=== PATIENT | male | born 1960 | race Caucasian/White ===

== ENCOUNTER 2016-07-07 09:29 | Outpatient (CLI) ==
[2012-12-02 20:31] VITALS: TEMP 97.3
[2015-06-23 12:12] VITALS: BMI 34.4
== END 2016-07-07 09:30 | disposition home or self-care (01) ==
LOC: LAB 09:29
PROVIDERS: ATTEND Internal Medicine
DX: I26.99 Other pulmonary embolism without acute cor pulmonale (principal); Z95.1 Presence of aortocoronary bypass graft
CPT/HCPCS: 36415; 85610

== ENCOUNTER 2016-08-15 15:20 | Outpatient (CLI) ==
[2012-12-02 20:31] VITALS: TEMP 97.3
[2015-06-23 12:12] VITALS: BMI 34.4
[2016-08-15 15:42] LABS: PROTHROMBIN TIME 28.2 SEC (9.3-11.0)
== END 2016-08-15 15:21 | disposition home or self-care (01) ==
LOC: LAB 15:20
PROVIDERS: ATTEND Internal Medicine
DX: I26.99 Other pulmonary embolism without acute cor pulmonale (principal); Z95.1 Presence of aortocoronary bypass graft
CPT/HCPCS: 36415; 85610

== ENCOUNTER 2016-09-14 10:59 | Outpatient (RCR) ==
[2015-06-23 12:12] VITALS: BMI 34.4
[2016-09-16 08:52] VITALS: BP 106/52
== END 2016-09-16 ==
LOC: CAR.REHAB 10:59
PROVIDERS: ATTEND Nurse Practitioner Family
DX: I50.23 Acute on chronic systolic (congestive) heart failure (principal)
CPT/HCPCS: 93798

== ENCOUNTER 2016-09-17 07:00 | Outpatient (RCR) ==
[2015-06-23 12:12] VITALS: BMI 34.4
[2016-10-07 08:59] VITALS: BP 92/50
== END 2016-10-16 ==
LOC: CAR.REHAB 07:00
PROVIDERS: ATTEND Internal Medicine
DX: I50.23 Acute on chronic systolic (congestive) heart failure (principal)
CPT/HCPCS: 93798

== ENCOUNTER 2016-09-26 11:33 | Outpatient (CLI) ==
[2012-12-02 20:31] VITALS: TEMP 97.3
[2015-06-23 12:12] VITALS: BMI 34.4
[2016-09-26 12:09] LABS: ANION GAP 13.3; BUN/CREATININE RATIO 15.59; CREATININE 1.09 mg/dL (0.60-1.10); POTASSIUM 4.3 mmol/L (3.5-5.1)
== END 2016-09-26 11:34 | disposition home or self-care (01) ==
LOC: LAB 11:33
PROVIDERS: ATTEND Internal Medicine
DX: I10 Essential (primary) hypertension (principal)
CPT/HCPCS: 36415; 80048

== ENCOUNTER 2016-09-30 11:44 | Outpatient (CLI) ==
[2012-12-02 20:31] VITALS: TEMP 97.3
[2015-06-23 12:12] VITALS: BMI 34.4
[2016-09-30 12:41] LABS: ANION GAP 15.2; BUN/CREATININE RATIO 12.93; CALCIUM 9.6 mg/dL (8.2-10.2); CREATININE 1.16 mg/dL (0.60-1.10); POTASSIUM 3.2 mmol/L (3.5-5.1)
== END 2016-09-30 11:45 | disposition home or self-care (01) ==
LOC: LAB 11:44
PROVIDERS: ATTEND Internal Medicine
DX: I10 Essential (primary) hypertension (principal)
CPT/HCPCS: 36415; 80048

== ENCOUNTER 2016-10-04 13:12 | Emergency (ER) ==
[2016-10-04 13:19] VITALS: BP 81/66; TEMP 97.2; BMI 28.8
[2016-10-04] MEDS ORDERED: SODIUM CHLORIDE 250 ML IV STA (13:28)
[2016-10-04] MEDS ORDERED: ZOFRAN 4 MG/2 ML IVP STA ×2 (13:28→14:29)
[2016-10-04] MEDS ORDERED: ZOFRAN 4 MG/2 ML ONE (13:29)
--- NOTE | 2016-10-04 13:48 | ED.PDOC ---
General ED Provider: Dr. YAA DOYLE JR Chief Complaint: Dizziness Stated Complaint: infrom PMD nausea vomiting unable to obtain blood pressure, seen yesterday for nausea and vomiting took zofran this morning feels has been nauseated since beginning spironolactone. went to dr prasad for a check up today, was put on spironolactone last week at [facility] in [place] and has had problems since then. today was unable to get bp in the office. states ears are ringing and everything went bright. vomited this am. was seen at [facility] yesterday for vomiting. [ End ]97.2 80 22 100% 81/66 Time Seen by Physician: 13:48 Mode of Arrival: Wheelchair Information Source: Patient Exam Limitations: No limitations Primary Care Provider: JAN MACE Nursing and Triage Documentation Reviewed and Agree: No Review of Systems - Review Of Systems Constitutional: Reports: Malaise, Weakness Eyes: Reports: No symptoms Ears, Nose, Mouth, Throat: Reports: No symptoms Respiratory: Reports: No symptoms Cardiac: Reports: No symptoms, Other (low blood presure) GI: Reports: Abdominal pain, Nausea, Vomiting : Reports: No symptoms Musculoskeletal: Reports: No symptoms Skin: Reports: No symptoms Neurological: Reports: No symptoms, Headache Endocrine: Reports: No symptoms Hematologic/Lymphatic: Reports: No symptoms All Other Systems: Other Past Medical History - Past Medical History Previously Healthy: No Endocrine: Reports: DM 2, Dyslipidemia Cardiovascular: Reports: [place], Hypertension Respiratory: Reports: COPD Hematological: Reports: None Gastrointestinal: Reports: None Genitourinary: Reports: None Neuro/Psych: Reports: Anxiety Musculoskeletal: Reports: None Cancer: Reports: None - Surgical History General Surgical History: Reports: Pacemaker (defib) - Family History Family History: Reports: Unknown - Social History Smoking Status: Former smoker Hx Substance Use: No Alcohol Screening: Occasionally Physical Exam - Physical Exam Appearance: Ill-appearing Ill-appearing: Moderate Pain Distress: Moderate Eyes: GARRET, EOMI, Conjunctiva clear ENT: Ears normal, Nose normal, Oropharynx normal Neck: Supple Respiratory: Airway patent, Breath sounds clear, Breath sounds equal, Respirations nonlabored Cardiovascular: RRR, Pulses normal, No rub, No murmur GI/: Soft, No masses, Tender, Bowel sounds hypoactive Musculoskeletal: Normal strength, ROM intact, No calf tenderness, Edema Physician Notification - Case Discussed Physician Notified: Dr Alvarado at [facility] accepts transfer Time of Notification: 16:30 Critical Care Note - Critical Care Note Total Time (mins): 20 Course - Course Hematology/Chemistry: 10/04/16 13:47 10/04/16 13:47 Orders, Labs, Meds: Lab Review 10/04/16 10/04/16 13:29 13:47 WBC 12.74 H RBC 5.66 Hgb 16.3 Hct 46.8 MCV 82.7 MCH 28.8 MCHC 34.8 RDW Coeff of Dione 13.7 Plt Count 220 Immature Gran % (Auto) 0.3 Neut % (Auto) 78.5 Lymph % (Auto) 9.7 L [place] % (Auto) 9.7 Eos % (Auto) 1.2 Baso % (Auto) 0.6 Immature Gran # (Auto) 0.0 Neut # 10.0 H Lymph # 1.2 [place] # 1.2 Eos # 0.2 Baso # 0.1 PT 32.7 H INR 12.88 H* Puncture Site Lr O2 Saturation 99.0 ABG pH 7.551 H* ABG pCO2 24.8 L ABG pO2 102.0 H ABG HCO3 21.8 L ABG Total CO2 23 ABG Base Excess -1 Junior Test + FiO2 % 21.0 Sodium 133 L Potassium 3.6 Chloride 90 L Carbon Dioxide 26 Anion Gap 20.6 BUN 30 H Creatinine 1.98 H Estimated GFR (MDRD) 35.00 BUN/Creatinine Ratio 15.15 Glucose 161 H Lactic Acid 29.3 H Calcium 9.7 Total Bilirubin 1.94 H AST 29 ALT 38 Alkaline Phosphatase 57 Total Creatine Kinase 105 Troponin I 0.1090 B-Natriuretic Peptide 1304 H Total Protein 7.9 Albumin 4.3 Globulin 3.6 Albumin/Globulin Ratio 1.19 Procalcitonin < 0.05 Orders Category Date Time Status ABG DRAW REQUEST Stat CARDIO 10/04/16 13:29 Completed EKG-(ED ONLY) Stat CARDIO 10/04/16 13:28 Completed ED APPLY O2 .ONCE EMERGENCY 10/04/16 13:28 Active ED WEIGHTER APPLIED .ONCE EMERGENCY 10/04/16 13:28 Active ED IV/MEDIPORT/POWERPORT .ONCE EMERGENCY 10/04/16 13:28 Active ABG Stat LAB 10/04/16 13:29 Completed ACTH Stat LAB 10/04/16 13:47 Received B-TYPE NATRIURETIC PEPTIDE Stat LAB 10/04/16 13:47 Completed BLOOD CULTURE Stat LAB 10/04/16 13:47 Received CBC W/ AUTO DIFF Stat LAB 10/04/16 13:47 Completed COMPREHENSIVE METABOLIC PANEL Stat LAB 10/04/16 13:47 Completed CORTISOL,RANDOM Stat LAB 10/04/16 13:47 Received CREATINE KINASE Stat LAB 10/04/16 13:47 Completed LACTIC ACID Stat LAB 10/04/16 13:47 Completed PROCALCITONIN Stat LAB 10/04/16 13:47 Completed PT WITH INR Stat LAB 10/04/16 13:47 Completed TROPONIN I Stat LAB 10/04/16 13:47 Completed 0.9 % Sodium Chloride [Saline Flush] MEDS 10/04/16 13:28 Discontinued 1 syr IVF PRN PRN Dexamethasone 4 mg/ml Inj [Decadron 4 mg/ml Sdv] MEDS 10/04/16 14:08 Discontinued 4 mg IVP ONCE STA Metoclopramide HCl [Reglan] MEDS 10/04/16 14:43 Discontinued 10 mg .ROUTE .STK-MED ONE Metoclopramide HCl [Reglan] MEDS 10/04/16 14:47 Discontinued 10 mg IVP ONCE STA Ondansetron HCl/Pf [Zofran 4 mg/2 ml] MEDS 10/04/16 13:29 Discontinued 4 mg .ROUTE .STK-MED ONE Ondansetron HCl/Pf [Zofran 4 mg/2 ml] MEDS 10/04/16 13:28 Discontinued 4 mg IVP ONCE STA Ondansetron HCl/Pf [Zofran 4 mg/2 ml] MEDS 10/04/16 14:29 Discontinued 4 mg IVP ONCE STA Phytonadione [Mephyton] MEDS 10/04/16 16:01 Discontinued 5 mg PO ONCE STA Sodium Chloride 0.9% [Sodium Chloride] 1,000 ml MEDS 10/04/16 14:34 Discontinued IV 100 mls/hr Sodium Chloride 0.9% [Sodium Chloride] 250 ml MEDS 10/04/16 13:28 Discontinued IV BOLUS CHEST, 1V AP ONLY Stat RADS 10/04/16 13:28 Completed Medications Discontinued Medications Generic Name Dose Route Start Last Admin Trade Name Freq PRN Reason Stop Dose Admin Dexamethasone Sodium Phosphate 4 mg 04/18/17 14:08 10/04/16 14:17 Decadron 4 Mg/Ml Sdv IVP 10/04/16 14:09 4 mg ONCE STA Administration Sodium Chloride 250 mls @ 1,000 mls/hr 10/04/16 13:28 10/04/16 13:36 Sodium Chloride IV 10/04/16 13:42 1,000 mls/hr BOLUS STA Administration Sodium Chloride 1,000 mls @ 100 mls/hr 10/04/16 14:34 10/04/16 14:47 Sodium Chloride IV 10/05/16 00:33 100 mls/hr .Q10H STA Administration Metoclopramide HCl 10 mg 10/04/16 14:47 10/04/16 14:56 Reglan IVP 10/04/16 14:48 Not Given ONCE STA Ondansetron HCl 4 mg 10/04/16 13:28 10/04/16 13:36 Zofran 4 Mg/2 Ml IVP 10/04/16 13:29 4 mg ONCE STA Administration Ondansetron HCl 4 mg 10/04/16 14:29 10/04/16 14:35 Zofran 4 Mg/2 Ml IVP 10/04/16 14:30 4 mg ONCE STA Administration Phytonadione 5 mg 10/04/16 16:01 10/04/16 16:06 Mephyton PO 10/04/16 16:02 5 mg ONCE STA Administration Sodium Chloride 1 syr 10/04/16 13:28 10/04/16 13:36 Saline Flush IVF 1 syr PRN PRN Administration To flush IV Vital Signs: Temp Pulse Resp BP Pulse Ox 10/04/16 13:13 97.2 F L 80 22 81/66 L 100 ROBSON Risk Score ROBSON Risk Score: Risk Score Odds of by 30D 0 0.1 (0.1-0.2) 1 0.3 (0.2-0.3) 2 0.4 (0.3-0.5) 3 0.7 (0.6-0.9) 4 1.2 (1.0-1.5) 5 2.2 (1.9-2.6) 6 3.0 (2.5-3.6) 7 4.8 (3.8-6.1) Departure - Departure Time of Disposition: 16:30 Disposition: TSF SHORT-TRM HOSP Discharge Problem: CHF (congestive heart failure), Renal failure Condition: Stable Pt referred to PMD for follow-up: No (transfer [facility]) Allergies/Adverse Reactions: Allergies No Known Allergies Allergy (Verified 10/04/16 13:22) Home Medications: Ambulatory Orders Rosuvastatin Calcium [Crestor] 10 mg PO BEDTIME 12/01/12 Aspirin [Aspirin Chewable] 81 mg PO DAILY 01/01/13 Lisinopril [Zestril] 2.5 mg PO DAILY 01/01/13 Warfarin Sodium [Coumadin] 5 mg PO QPM 01/01/13 Alprazolam 1 - 2 tab PO DAILY PRN 09/24/13 Budesonide/Formoterol Fumarate [Symbicort 160-4.5 Mcg Inhaler] 1 puff IH BID 01/30 Carvedilol [Coreg] 6.25 mg PO BIDWM #60 tablet 09/28/13 Albuterol Sulfate 0.083% Neb [Albuterol 0.083% Neb] 1 vial NEB RTQ6H PRN Metformin HCl [Glucophage] 500 mg PO DAILYWM 02/20/14 Furosemide [Lasix Tab] 80 mg PO QDAC 10/04/16
[2016-10-04 13:59] LABS: BASOPHILS # (AUTO) 0.1 K/uL (0-0.2); BASOPHILS % (AUTO) 0.6 % (0.0-3.0); EOSINOPHILS # (AUTO) 0.2 K/ul (0.0-0.7); EOSINOPHILS % (AUTO) 1.2 % (0.0-7.0); HEMATOCRIT 46.8 % (42.0-52.0); HEMOGLOBIN 16.3 g/dl (14.0-18.0); IMMATURE GRANULOCYTE % (AUTO) 0.3 % (0.0-5.0); LYMPHOCYTES # (AUTO) 1.2 K/uL (0.60-3.4); LYMPHOCYTES % (AUTO) 9.7 (10.0-50.0); MEAN CORPUSCULAR HEMOGLOBIN 28.8 pg (27.0-31.0); MEAN CORPUSCULAR HGB CONC 34.8 (31.8-35.4); MEAN CORPUSCULAR VOLUME 82.7 fl (80.0-94.0); MONOCYTES # (AUTO) 1.2 K/uL (0.4-2.0); MONOCYTES % (AUTO) 9.7 (0-10); NEUTROPHILS % (AUTO) 78.5; PLATELET COUNT 220 10^3/uL (140-440); RED BLOOD COUNT 5.66 10^6/ul (4.70-6.10); WHITE BLOOD COUNT 12.74 K/ul (4.2-10.2)
--- NOTE | 2016-10-04 14:05 | DI ---
EXAM: Single view of the chest. History: Chest pain. Comparison: Chest radiograph 03/19/2014 Findings: Heart is enlarged. Pacer device. Sternotomy wires. No focal consolidation. No appreci able pleural fluid and no pneumothorax. No acute osseous abnormalities. Artificial heart valve Impression: Cardiomegaly with no evidence for pulmonary edema.
[2016-10-04] MEDS ORDERED: DECADRON 4 MG/ML SDV IVP STA (14:08)
[2016-10-04 14:09] LABS: ABG BASE EXCESS -1 (-2.0-2.0); ABG HCO3 21.8 (22.0-26.0); ABG PCO2 24.8 mmHg (35-45); ABG PH 7.551 (7.35-7.45)
[2016-10-04 14:10] LABS: ABG TCO2 23 (22.0-28.0)
[2016-10-04 14:26] LABS: ALBUMIN 4.3 g/dL (3.4-5.0); ALBUMIN/GLOBULIN RATIO 1.19; ANION GAP 20.6; BILIRUBIN,TOTAL 1.94 mg/dL (0.00-1.20); BUN/CREATININE RATIO 15.15; CALCIUM 9.7 mg/dL (8.2-10.2); CREATININE 1.98 mg/dL (0.60-1.10); POTASSIUM 3.6 mmol/L (3.5-5.1); TOTAL PROTEIN 7.9 g/dL (6.4-8.2); TROPONIN I 0.109 ng/ml (0.0000-0.4000)
[2016-10-04] MEDS ORDERED: SODIUM CHLORIDE 1,000 ML IV STA (14:34)
[2016-10-04] MEDS ORDERED: REGLAN ONE (14:43)
[2016-10-04] MEDS ORDERED: REGLAN IVP STA (14:47)
[2016-10-04 15:04] LABS: PROTHROMBIN TIME 32.7 SEC (9.3-11.0)
[2016-10-04] MEDS ORDERED: VITAMIN K IV STA (15:49)
[2016-10-04] MEDS ORDERED: SODIUM CHLORIDE IV STA (15:49)
[2016-10-04] MEDS ORDERED: MEPHYTON PO STA (16:01)
== END 2016-10-04 17:09 | disposition short-term general hospital (02) ==
LOC: ED 13:12
DX: I50.9 Heart failure, unspecified (principal); N19 Unspecified kidney failure; E11.9 Type 2 diabetes mellitus without complications; E78.5 Hyperlipidemia, unspecified; I25.2 Old myocardial infarction; I10 Essential (primary) hypertension; J44.9 Chronic obstructive pulmonary disease, unspecified; Z95.0 Presence of cardiac pacemaker; Z79.01 Long term (current) use of anticoagulants; Z79.899 Other long term (current) drug therapy
CPT/HCPCS: 36415; 80053; 82024; 82533; 82550; 82803; 83605; 83880; 84145; 84484; 85025; 85610; 87040; 93005; 93010; 96361; 96374; 96375; 96376; 99285

== ENCOUNTER 2016-10-04 17:15 | Outpatient (CLI) ==
[2012-12-02 20:31] VITALS: TEMP 97.3
== END 2016-10-04 17:16 ==
LOC: AMBL 17:15
PROVIDERS: ATTEND Emergency Medicine
DX: I42.9 Cardiomyopathy, unspecified (principal); R42 Dizziness and giddiness; I95.9 Hypotension, unspecified

== ENCOUNTER 2016-10-07 08:46 | Emergency (ER) ==
[2016-10-07 08:46] VITALS: BMI 28.8
[2016-10-07 08:54] VITALS: BP 92/60; TEMP 98.2
[2016-10-07 09:48] LABS: BASOPHILS # (AUTO) 0.1 K/uL (0-0.2); EOSINOPHILS # (AUTO) 0.3 K/ul (0.0-0.7); EOSINOPHILS % (AUTO) 3.1 % (0.0-7.0); HEMATOCRIT 45.5 % (42.0-52.0); HEMOGLOBIN 15.5 g/dl (14.0-18.0); IMMATURE GRANULOCYTE % (AUTO) 0.5 % (0.0-5.0); LYMPHOCYTES # (AUTO) 1.1 K/uL (0.60-3.4); LYMPHOCYTES % (AUTO) 12.4 (10.0-50.0); MEAN CORPUSCULAR HEMOGLOBIN 28.8 pg (27.0-31.0); MEAN CORPUSCULAR HGB CONC 34.1 (31.8-35.4); MEAN CORPUSCULAR VOLUME 84.4 fl (80.0-94.0); MONOCYTES # (AUTO) 0.9 K/uL (0.4-2.0); MONOCYTES % (AUTO) 10.1 (0-10); NEUTROPHILS # (AUTO) 6.4 K/ul (2.0-6.9); NEUTROPHILS % (AUTO) 72.9; PLATELET COUNT 166 10^3/uL (140-440); RED BLOOD COUNT 5.39 10^6/ul (4.70-6.10); WHITE BLOOD COUNT 8.73 K/ul (4.2-10.2)
--- NOTE | 2016-10-07 10:09 | DI ---
EXAM: Single view of the chest. History: Cough. Comparison: Chest radiograph 10/04/2016 Findings: Heart remains enlarged. Pacer device. Sternotomy wires. No definite infiltrates. No a ppreciable pleural fluid and no pneumothorax. No acute osseous abnormalities. Impression: Cardiomegaly without evidence for pulmonary edema. No change compared to the prior adryan dy.
[2016-10-07 10:11] LABS: PARTIAL THROMBOPLASTIN TIME 25.2 SEC (23.9-40.0); PROTHROMBIN TIME 12.9 SEC (9.3-11.0)
[2016-10-07 10:17] LABS: ALBUMIN 3.9 g/dL (3.4-5.0); ALBUMIN/GLOBULIN RATIO 1.22; ANION GAP 16.2; BILIRUBIN,TOTAL 2.06 mg/dL (0.00-1.20); BUN/CREATININE RATIO 16.66; CALCIUM 9.2 mg/dL (8.2-10.2); CREATININE 1.14 mg/dL (0.60-1.10); POTASSIUM 3.2 mmol/L (3.5-5.1); TOTAL PROTEIN 7.1 g/dL (6.4-8.2); TROPONIN I 0.044 ng/ml (0.0000-0.4000)
--- NOTE | 2016-10-07 11:43 | ED.PDOC ---
General ED Provider: Dr. MARIE CURIEL Chief Complaint: Weakness Stated Complaint: weakness Time Seen by Physician: 09:00 (was D/C from [facility] 1 day ago , while at cardiac rehab became weak) Mode of Arrival: Walk-In Information Source: Patient Exam Limitations: No limitations Primary Care Provider: JAN MACE Nursing and Triage Documentation Reviewed and Agree: Yes Neurological Complaint Exam - Weakness Complaint/Exam Last Known Well: this morning became weak at rehab arrived in no pain Onset: Sudden Duration: 20 min . was at [facility] due to elevated INR d/c 1 day ago Symptoms Are: Still present Episodes Lasting: Minutes Initial Severity: Mild Current Severity: None Character: Reports: Lightheaded, Weak Aggravating: Reports: Exertion Alleviating: Reports: Rest Associated Signs and Symptoms: Denies: Nausea, Vomiting, Diaphoresis, Tinnitus, Chest pain, Short of air, Palpitations, Unsteady gait, GI blood loss, Visual changes, Decreased oral intake, Change in medication, Change in diet, OTC meds, Loss of balance Related History: Similar episode Cardiac Risk Factors: Reports: Hypertension (severe cardio myopathy being unloaded per PMD ), Elevated lipids, CAD CVA Risk Factors: Reports: Hypertension, CAD Related Surgical History: Reports: CABG, Pacemaker JVD Present: No Carotid Bruit Present: No Nystagmus Present: No Gag Reflex Present: Yes Meningeal Signs Positive: No Focal Weakness: Present: None Focal Sensory Loss: Present: None Gait: Normal [id number]: Normal Findings Babinski Sign: Negative Right, Negative Left Heel to Toe Normal: No Caroline-Hallpike Test Positive: No Differential Diagnoses: CAD, Dysrhythmia, Hypovolemia, Metabolic abnormalities Quality Indicators for Cardiac Chest Pain: EKG in 10min. Quality Indicators for AMI: EKG in 10min. Quality Indicator For Non-Traumatic Chest Pain/Syncope: EKG Performed Review of Systems - Review Of Systems Constitutional: Reports: Malaise, Weakness Eyes: Reports: No symptoms Ears, Nose, Mouth, Throat: Reports: No symptoms Respiratory: Reports: No symptoms Cardiac: Reports: No symptoms GI: Reports: No symptoms : Reports: No symptoms Musculoskeletal: Reports: No symptoms Skin: Reports: No symptoms Neurological: Reports: No symptoms Endocrine: Reports: No symptoms Hematologic/Lymphatic: Reports: No symptoms All Other Systems: Reviewed and Negative Past Medical History - Past Medical History Previously Healthy: No Endocrine: Reports: DM 2, Dyslipidemia Cardiovascular: Reports: [place], Hypertension Respiratory: Reports: COPD Hematological: Reports: None Gastrointestinal: Reports: None Genitourinary: Reports: None Neuro/Psych: Reports: Anxiety Musculoskeletal: Reports: None Cancer: Reports: None - Surgical History General Surgical History: Reports: Pacemaker (defib) - Family History Family History: Reports: Unknown - Social History Smoking Status: Former smoker Hx Substance Use: No Alcohol Screening: Occasionally Physical Exam - Physical Exam Appearance: Well-appearing, No pain distress, Well-nourished Eyes: GARRET, EOMI, Conjunctiva clear ENT: Ears normal, Nose normal, Oropharynx normal Respiratory: Airway patent, Breath sounds clear, Breath sounds equal, Respirations nonlabored Cardiovascular: RRR, Pulses normal, No rub, No murmur GI/: Soft, Nontender, No masses, Bowel sounds normal, No Organomegaly Musculoskeletal: Normal strength, ROM intact, No edema, No calf tenderness Skin: Warm, Dry, Normal color Neurological: Sensation intact, Motor intact, Reflexes intact, Cranial nerves intact, Alert, Oriented Psychiatric: Affect appropriate, Mood appropriate Re-Evaluation - Re-Evaluation Time of Re-Evaluation: 10:00 Status: Improved Vital Signs Stable: Yes Pain Level: 0 Appearance: NAD Lungs: Clear Skin: Warm and Dry Neuro: Alert and Oriented X3 CV: RRR - Re-Evaluation Time of Re-Evaluation: 11:45 (SPOKE TO PMD WHO STATED PT'S BP OF SYSTOLIC 80' S IS ACCEPTABLE FOR PT PMD CONTRIBUTE S LATCTIC ACID LEVELS TO LOW PERFUSION STATE DUE TO HIS TREATMENT ) Critical Care Note - Critical Care Note Total Time (mins): 0 Course - Course Hematology/Chemistry: 10/07/16 09:40 10/07/16 09:40 Orders, Labs, Meds: Lab Review 10/07/16 09:40 WBC 8.73 RBC 5.39 Hgb 15.5 Hct 45.5 MCV 84.4 MCH 28.8 MCHC 34.1 RDW Coeff of Dione 13.5 Plt Count 166 Immature Gran % (Auto) 0.5 Neut % (Auto) 72.9 Lymph % (Auto) 12.4 [place] % (Auto) 10.1 H Eos % (Auto) 3.1 Baso % (Auto) 1.0 Immature Gran # (Auto) 0.0 Neut # 6.4 Lymph # 1.1 [place] # 0.9 Eos # 0.3 Baso # 0.1 PT 12.9 H D INR 1.25 D APTT 25.2 Sodium 132 L Potassium 3.2 L Chloride 94 L Carbon Dioxide 25 Anion Gap 16.2 BUN 19 H Creatinine 1.14 H D Estimated GFR (MDRD) 66.00 BUN/Creatinine Ratio 16.66 Glucose 153 H Lactic Acid 25.4 H D Calcium 9.2 Total Bilirubin 2.06 H AST 21 ALT 29 Alkaline Phosphatase 55 Total Creatine Kinase 81 Troponin I 0.0440 B-Natriuretic Peptide 988 H Total Protein 7.1 Albumin 3.9 Globulin 3.2 Albumin/Globulin Ratio 1.22 Orders Category Date Time Status EKG-(ED ONLY) Stat CARDIO 10/07/16 09:31 Completed ED IV/MEDIPORT/POWERPORT .ONCE EMERGENCY 10/07/16 09:22 Active B-TYPE NATRIURETIC PEPTIDE Stat LAB 10/07/16 09:40 Completed BLOOD CULTURE Stat LAB 10/07/16 09:40 Received CBC W/ AUTO DIFF Stat LAB 10/07/16 09:40 Completed COMPREHENSIVE METABOLIC PANEL Stat LAB 10/07/16 09:40 Completed CREATINE KINASE Stat LAB 10/07/16 09:40 Completed LACTIC ACID Stat LAB 10/07/16 09:40 Completed PARTIAL THROMBOPLASTIN TIME Stat LAB 10/07/16 09:40 Completed PT WITH INR Stat LAB 10/07/16 09:40 Completed TROPONIN I Stat LAB 10/07/16 09:40 Completed URINALYSIS C & S IF INDICATED Stat LAB 10/07/16 09:21 Uncollected 0.9 % Sodium Chloride [Saline Flush] MEDS 10/07/16 09:22 Active 1 syr IVF PRN PRN CHEST, 1V AP ONLY Stat RADS 10/07/16 09:21 Completed Medications Generic Name Dose Route Start Last Admin Trade Name Freq PRN Reason Stop Dose Admin Sodium Chloride 1 syr 10/07/16 09:22 Saline Flush IVF PRN PRN To flush IV Vital Signs: Temp Pulse Resp BP Pulse Ox 10/07/16 08:47 98.2 F 79 16 92/60 99 Departure - Departure Time of Disposition: 12:00 (B/P AT 11;48 AM 97/55 . PMD VISIING PT) Disposition: HOME SELF-CARE Discharge Problem: Weakness Instructions: Weakness (ED) Condition: Good Pt referred to PMD for follow-up: Yes Allergies/Adverse Reactions: Allergies spironolactone Adverse Reaction (Verified 10/07/16 08:55) Home Medications: Ambulatory Orders Rosuvastatin Calcium [Crestor] 10 mg PO BEDTIME 12/01/12 Aspirin [Aspirin Chewable] 81 mg PO DAILY 01/01/13 Lisinopril [Zestril] 2.5 mg PO DAILY 01/01/13 Warfarin Sodium [Coumadin] 6.5 mg PO QPM 01/01/13 Alprazolam 1 - 2 tab PO BID PRN 09/24/13 Budesonide/Formoterol Fumarate [Symbicort 160-4.5 Mcg Inhaler] 1 puff IH BID 01/30 Carvedilol [Coreg] 6.25 mg PO BIDWM #60 tablet 09/28/13 Albuterol Sulfate 0.083% Neb [Albuterol 0.083% Neb] 1 vial NEB RTQ6H PRN Metformin HCl [Glucophage] 500 mg PO BID 02/20/14 Ondansetron [Zofran Odt] 8 mg PO Q8H PRN 10/07/16 Sitagliptin Phosphate [Januvia] 25 mg PO DAILY 10/07/16
== END 2016-10-07 13:08 | disposition home or self-care (01) ==
LOC: ED 08:46
DX: R53.1 Weakness (principal); R42 Dizziness and giddiness; I10 Essential (primary) hypertension; E78.5 Hyperlipidemia, unspecified; I25.810 Atherosclerosis of coronary artery bypass graft(s) without angina pectoris; I25.2 Old myocardial infarction; E11.9 Type 2 diabetes mellitus without complications; Z79.01 Long term (current) use of anticoagulants; Z79.899 Other long term (current) drug therapy; Z95.0 Presence of cardiac pacemaker
CPT/HCPCS: 36415; 80053; 82550; 83605; 83880; 84484; 85025; 85610; 85730; 87040; 93005; 93010; 99283

== ENCOUNTER 2016-10-10 08:19 | Outpatient (CLI) ==
[2012-12-02 20:31] VITALS: TEMP 97.3
[2016-10-10 08:44] LABS: PROTHROMBIN TIME 12.9 SEC (9.3-11.0)
== END 2016-10-10 08:20 | disposition home or self-care (01) ==
LOC: LAB 08:19
PROVIDERS: ATTEND Internal Medicine
DX: Z95.1 Presence of aortocoronary bypass graft (principal); Z79.899 Other long term (current) drug therapy
CPT/HCPCS: 36415; 85610

== ENCOUNTER 2016-10-17 07:40 | Outpatient (RCR) ==
[2016-10-07 08:54] VITALS: BMI 28.8
[2016-10-18 08:49] VITALS: BP 102/50
== END 2016-11-16 ==
LOC: CAR.REHAB 07:40
PROVIDERS: ATTEND Internal Medicine
DX: I50.23 Acute on chronic systolic (congestive) heart failure (principal)
CPT/HCPCS: 93798

== ENCOUNTER 2016-11-03 11:44 | Outpatient (CLI) ==
[2012-12-02 20:31] VITALS: TEMP 97.3
[2016-10-07 08:54] VITALS: BMI 28.8
[2016-11-03 12:40] LABS: PROTHROMBIN TIME 38.5 SEC (9.3-11.0)
== END 2016-11-03 11:45 | disposition home or self-care (01) ==
LOC: LAB 11:44
PROVIDERS: ATTEND Internal Medicine
DX: Z51.81 Encounter for therapeutic drug level monitoring (principal); Z79.899 Other long term (current) drug therapy; Z95.1 Presence of aortocoronary bypass graft
CPT/HCPCS: 36415; 85610

== ENCOUNTER 2016-11-17 10:09 | Outpatient (RCR) ==
[2016-10-07 08:54] VITALS: BMI 28.8
[2016-12-16 08:57] VITALS: BP 110/58
== END 2016-12-16 ==
LOC: CAR.REHAB 10:09
PROVIDERS: ATTEND Internal Medicine
DX: I50.23 Acute on chronic systolic (congestive) heart failure (principal)
CPT/HCPCS: 93797

== ENCOUNTER 2016-12-19 06:47 | Outpatient (RCR) ==
[2016-10-07 08:54] VITALS: BMI 28.8
[2017-01-13 11:51] VITALS: BP 112/56
== END 2017-01-16 ==
LOC: CAR.REHAB 06:47
PROVIDERS: ATTEND Internal Medicine
DX: I50.23 Acute on chronic systolic (congestive) heart failure (principal)
CPT/HCPCS: 93798

== ENCOUNTER 2016-12-23 10:16 | Outpatient (CLI) ==
[2012-12-02 20:31] VITALS: TEMP 97.3
[2016-10-07 08:54] VITALS: BMI 28.8
[2016-12-23 10:57] LABS: PROTHROMBIN TIME 17.9 SEC (9.3-11.0)
== END 2016-12-23 10:17 | disposition home or self-care (01) ==
LOC: LAB 10:16
PROVIDERS: ATTEND Internal Medicine
DX: Z51.81 Encounter for therapeutic drug level monitoring (principal); Z79.899 Other long term (current) drug therapy; Z95.1 Presence of aortocoronary bypass graft
CPT/HCPCS: 36415; 85610

== ENCOUNTER 2017-01-17 07:42 | Outpatient (RCR) ==
[2016-10-07 08:54] VITALS: BMI 28.8
[2017-02-15 09:54] VITALS: BP 108/62
== END 2017-02-16 ==
LOC: CAR.REHAB 07:42
PROVIDERS: ATTEND Internal Medicine
DX: I50.23 Acute on chronic systolic (congestive) heart failure (principal)
CPT/HCPCS: 93798

== ENCOUNTER 2017-02-13 10:00 | Outpatient (CLI) ==
[2012-12-02 20:31] VITALS: TEMP 97.3
[2016-10-07 08:54] VITALS: BMI 28.8
== END 2017-02-13 10:01 | disposition home or self-care (01) ==
LOC: LAB 10:00
PROVIDERS: ATTEND Internal Medicine
DX: Z51.81 Encounter for therapeutic drug level monitoring (principal); Z79.899 Other long term (current) drug therapy; Z95.1 Presence of aortocoronary bypass graft
CPT/HCPCS: 36415; 85610

== ENCOUNTER 2017-02-17 07:11 | Outpatient (RCR) ==
[2016-10-07 08:54] VITALS: BMI 28.8
[2017-03-17 09:59] VITALS: BP 116/58
== END 2017-03-18 ==
LOC: CAR.REHAB 07:11
PROVIDERS: ATTEND Internal Medicine
DX: I50.23 Acute on chronic systolic (congestive) heart failure (principal)
CPT/HCPCS: 93798

== ENCOUNTER 2017-04-11 09:27 | Outpatient (CLI) ==
[2012-12-02 20:31] VITALS: TEMP 97.3
[2016-10-07 08:54] VITALS: BMI 28.8
[2017-04-11 10:10] LABS: PROTHROMBIN TIME 21.7 SEC (9.3-11.0)
[2017-04-11 11:06] LABS: BASOPHILS # (AUTO) 0.1 K/uL (0-0.2); BASOPHILS % (AUTO) 0.7 % (0.0-3.0); EOSINOPHILS # (AUTO) 0.3 K/ul (0.0-0.7); EOSINOPHILS % (AUTO) 2.6 % (0.0-7.0); HEMATOCRIT 36.9 % (42.0-52.0); HEMOGLOBIN 12.8 g/dl (14.0-18.0); IMMATURE GRANULOCYTE % (AUTO) 0.4 % (0.0-5.0); LYMPHOCYTES # (AUTO) 1.5 K/uL (0.60-3.4); LYMPHOCYTES % (AUTO) 13.7 (10.0-50.0); MEAN CORPUSCULAR HEMOGLOBIN 30.5 pg (27.0-31.0); MEAN CORPUSCULAR HGB CONC 34.7 (31.8-35.4); MEAN CORPUSCULAR VOLUME 87.9 fl (80.0-94.0); MONOCYTES # (AUTO) 1.1 K/uL (0.4-2.0); MONOCYTES % (AUTO) 10.6 (0-10); NEUTROPHILS # (AUTO) 7.7 K/ul (2.0-6.9); PLATELET COUNT 186 10^3/uL (140-440); WHITE BLOOD COUNT 10.72 K/ul (4.2-10.2)
[2017-04-11 11:50] LABS: ALBUMIN/GLOBULIN RATIO 0.98; BILIRUBIN,TOTAL 0.67 mg/dL (0.00-1.20); BUN/CREATININE RATIO 22.3; CALCIUM 10.1 mg/dL (8.2-10.2); CREATININE 1.3 mg/dL (0.60-1.10); TOTAL PROTEIN 8.1 g/dL (6.4-8.2)
== END 2017-04-11 09:28 | disposition home or self-care (01) ==
LOC: LAB 09:27
PROVIDERS: ATTEND Internal Medicine
DX: E11.9 Type 2 diabetes mellitus without complications (principal); I10 Essential (primary) hypertension; I25.810 Atherosclerosis of coronary artery bypass graft(s) without angina pectoris; E66.9 Obesity, unspecified; Z12.5 Encounter for screening for malignant neoplasm of prostate; Z79.899 Other long term (current) drug therapy
CPT/HCPCS: 36415; 80053; 80061; 83036; 84439; 84443; 85025; 85610

== ENCOUNTER 2017-04-19 06:47 | Outpatient (RCR) ==
[2016-10-07 08:54] VITALS: BMI 28.8
[2017-05-17 10:05] VITALS: BP 106/54
== END 2017-05-18 ==
LOC: CAR.REHAB 06:47
PROVIDERS: ATTEND Internal Medicine
DX: I50.23 Acute on chronic systolic (congestive) heart failure (principal)
CPT/HCPCS: 93798

== ENCOUNTER 2017-05-19 06:25 | Outpatient (RCR) ==
[2016-10-07 08:54] VITALS: BMI 28.8
[2017-06-05 10:05] VITALS: BP 110/52
== END 2017-06-18 ==
LOC: CAR.REHAB 06:25
PROVIDERS: ATTEND Internal Medicine
DX: I50.23 Acute on chronic systolic (congestive) heart failure (principal)
CPT/HCPCS: 93798

== ENCOUNTER 2017-08-10 11:12 | Outpatient (CLI) ==
[2012-12-02 20:31] VITALS: TEMP 97.3
[2016-10-07 08:54] VITALS: BMI 28.8
== END 2017-08-10 11:13 | disposition home or self-care (01) ==
LOC: LAB 11:12
PROVIDERS: ATTEND Internal Medicine
DX: E78.5 Hyperlipidemia, unspecified (principal); E11.9 Type 2 diabetes mellitus without complications; I10 Essential (primary) hypertension; I26.99 Other pulmonary embolism without acute cor pulmonale; Z12.5 Encounter for screening for malignant neoplasm of prostate
CPT/HCPCS: 36415; 80053; 80061; 83036; 84443; 85025; 85610

== ENCOUNTER 2017-10-06 10:46 | Outpatient (CLI) ==
[2012-12-02 20:31] VITALS: TEMP 97.3
[2016-10-07 08:54] VITALS: BMI 28.8
== END 2017-10-06 10:47 | disposition home or self-care (01) ==
LOC: LAB 10:46
PROVIDERS: ATTEND Internal Medicine
DX: I26.99 Other pulmonary embolism without acute cor pulmonale (principal)
CPT/HCPCS: 36415; 85610

== ENCOUNTER 2017-11-08 10:04 | Outpatient (CLI) ==
[2012-12-02 20:31] VITALS: TEMP 97.3
[2016-10-07 08:54] VITALS: BMI 28.8
== END 2017-11-08 10:05 | disposition home or self-care (01) ==
LOC: LAB 10:04
PROVIDERS: ATTEND Internal Medicine
DX: I26.99 Other pulmonary embolism without acute cor pulmonale (principal)
CPT/HCPCS: 36415; 85610

== ENCOUNTER 2017-11-10 12:30 | Outpatient (RCR) ==
[2017-11-10 13:06] VITALS: BP 108/56; TEMP 97.8; BMI 31.4
== END 2017-11-16 23:59 ==
LOC: CAR.REHAB 12:30
PROVIDERS: ATTEND Internal Medicine Interventional Cardiology
DX: I42.0 Dilated cardiomyopathy (principal); I50.22 Chronic systolic (congestive) heart failure
CPT/HCPCS: 93798

== ENCOUNTER 2017-11-17 06:49 | Outpatient (RCR) ==
[2017-12-15 09:43] VITALS: BP 108/56
== END 2017-12-16 23:59 ==
LOC: CAR.REHAB 06:49
PROVIDERS: ATTEND Internal Medicine Interventional Cardiology
DX: I42.0 Dilated cardiomyopathy (principal); I50.22 Chronic systolic (congestive) heart failure
CPT/HCPCS: 93798

== ENCOUNTER 2017-12-11 10:03 | Outpatient (CLI) ==
[2012-12-02 20:31] VITALS: TEMP 97.3
== END 2017-12-11 10:04 | disposition home or self-care (01) ==
LOC: LAB 10:03
PROVIDERS: ATTEND Internal Medicine
DX: I26.99 Other pulmonary embolism without acute cor pulmonale (principal); E78.5 Hyperlipidemia, unspecified; E11.9 Type 2 diabetes mellitus without complications
CPT/HCPCS: 36415; 80053; 80061; 83036; 84439; 84443; 85025; 85610

== ENCOUNTER 2017-12-18 06:43 | Outpatient (RCR) ==
[2018-01-15 09:46] VITALS: BP 116/56
== END 2018-01-16 23:59 ==
LOC: CAR.REHAB 06:43
PROVIDERS: ATTEND Internal Medicine Interventional Cardiology
DX: I42.0 Dilated cardiomyopathy (principal); I50.22 Chronic systolic (congestive) heart failure
CPT/HCPCS: 93798

== ENCOUNTER 2018-01-17 06:51 | Outpatient (RCR) ==
[2018-02-16 09:48] VITALS: BP 106/52
== END 2018-02-16 23:59 ==
LOC: CAR.REHAB 06:51
PROVIDERS: ATTEND Internal Medicine Interventional Cardiology
DX: I42.0 Dilated cardiomyopathy (principal); I50.22 Chronic systolic (congestive) heart failure
CPT/HCPCS: 93798

== ENCOUNTER 2018-01-26 09:54 | Outpatient (CLI) ==
[2012-12-02 20:31] VITALS: TEMP 97.3
== END 2018-01-26 09:55 | disposition home or self-care (01) ==
LOC: LAB 09:54
PROVIDERS: ATTEND Internal Medicine
DX: I26.99 Other pulmonary embolism without acute cor pulmonale (principal)
CPT/HCPCS: 36415; 85610

== ENCOUNTER 2018-02-20 07:41 | Outpatient (RCR) ==
[2012-12-02 20:31] VITALS: TEMP 97.3
== END 2018-03-18 23:59 ==
LOC: CAR.REHAB 07:41
PROVIDERS: ATTEND Internal Medicine Interventional Cardiology
DX: I42.0 Dilated cardiomyopathy (principal); I50.22 Chronic systolic (congestive) heart failure

== ENCOUNTER 2018-03-14 16:35 | Emergency (ER) ==
[2018-03-14 16:43] VITALS: TEMP 97.4; BMI 29.1
[2018-03-14] MEDS ORDERED: ROCEPHIN 2 GM in SODIUM CHLORIDE 100 ML IV STA (18:10)
[2018-03-14] MEDS ORDERED: SODIUM CHLORIDE 250 ML IV STA (18:12)
--- NOTE | 2018-03-14 18:15 | CT ---
EXAM: CT scan of the abdomen pelvis without contrast HISTORY: Pain TECHNIQUE: Helical imaging of the abdomen pelvis was performed without contrast. 3 mm thin axial im ages and coronal and sagittal reconstructions were provided for interpretation. Comparison CT scan of the abdomen pelvis dated 01/01/2013. FINDINGS: The liver, spleen, pancreas, adrenal glands appear normal. The proximal ureters are darren l size. The small and large bowel loops are normal caliber. There is no free air. The helical images obtained through the pelvis demonstrate a normal appearance of the rectum, urinary bladder. There is no free fluid seen within the pelvis. Scattered diverticula are seen within the sigmoid colon without acute inflammation. The appendix appears normal. Lung bases are clear. No ly tic or blastic lesions are seen within the osseous structures. IMPRESSION: There is no bowel obstruction or acute inflammatory change seen within the abdomen and p argenis. There is no ureteral obstruction. Mild diverticular disease of the sigmoid colon without acute inflammation.
[2018-03-14 18:17] VITALS: BP 76/57
--- NOTE | 2018-03-14 18:17 | ED.PDOC ---
General ED Provider: Dr. MRAIE CURIEL Chief Complaint: Dizziness Stated Complaint: DIZZINESS Time Seen by Physician: 16:40 (SEEN WITH ARAM ROD ARRIVED HYPOTENSIVE 76/57 AT 6PM) Mode of Arrival: Walk-In Information Source: Patient Exam Limitations: No limitations (HE RETURNED FROM TRANSATLANTIC FLIGHT WHICH TOOK 25 HOURS IN TOTAL. ) Primary Care Provider: JAN MACE Nursing and Triage Documentation Reviewed and Agree: Yes Does patient meet sepsis criteria?: Yes If yes, has appropriate treatment been initiated?: Yes System Inflammatory Response Syndrome: Not Applicable Sepsis Protocol: For patient's 13 years and over: Temp is 96.8 and below OR 101 and greater Pulse >90 BPM Resp >20/minute Acutely Altered Mental Status Are patient's symptoms suggestive of a new infection, such as: -Pneumonia -Skin, Soft Tissue -Endocarditis -UTI -Bone, Joint Infection -Implantable Device -Acute Abdominal Infection -Wound Infection -Meningitis -Blood Stream Catheter Infection -Unknown Miscellaneous Complaint Exam - Complex/Multi-System Complaint/Exam Symptoms Are: Still present Episodes Lasting: Hours Initial Severity: Moderate Current Severity: Moderate Location of Pain: NO PAIN Associated Signs and Symptoms: Reports: Decreased oral intake. Denies: Decreased responsiveness, Confusion, Agitation, Dizziness, Weakness, Syncope, Headache, Short of air, Cough, Wheezing, Hemoptysis, Chest pain, Palpitations, Edema, Nausea, Vomiting, Diarrhea, Abdominal pain, Back pain, Dysuria, Hematemesis, Melena, Fever, Diaphoresis, Immunocompromised, Anticoagulation Therapy, Recent medication changes, Indwelling medical office specialist, Prior MRSA, Prior VRE, Recent trauma, Remote trauma Recent Echo/LV Function: No Respiratory Distress: None JVD Present: No Tachypnea Present: No Stridor Present: No Abdominal Findings: Present: Normal findings Glascow Coma Scale (see protocol): 15 Meningeal Signs Positive: No Focal Weakness: Present: None Focal Sensory Loss: Present: None Gait: Unable Gag Reflex Present: Yes Babinski Sign: Negative Right, Negative Left Joint Swelling Present: No In-Dwelling Device Present: No Differential Diagnosis: Cardiac Ischemia, Metabolic Abnormality, Other (SEPSIS) Quality Indicators for Cardiac Chest Pain: EKG in 10min. Quality Indicators for AMI: EKG in 10min. Quality Indicators For Pneumonia/CAP: Antibiotics in 6hr-admit, SpO2 assessed, Empiric Antibiotic Rx, Vital signs, Mental status assessed Quality Indicator For Non-Traumatic Chest Pain/Syncope: EKG Performed Review of Systems - Review Of Systems Constitutional: Reports: Malaise, Weakness Eyes: Reports: No symptoms Ears, Nose, Mouth, Throat: Reports: No symptoms Respiratory: Reports: No symptoms Cardiac: Reports: No symptoms GI: Reports: No symptoms : Reports: No symptoms Musculoskeletal: Reports: No symptoms Skin: Reports: No symptoms Neurological: Reports: No symptoms Endocrine: Reports: No symptoms Hematologic/Lymphatic: Reports: No symptoms All Other Systems: Reviewed and Negative Past Medical History - Past Medical History Previously Healthy: No Endocrine: Reports: DM 2, Dyslipidemia Cardiovascular: Reports: RI, Hypertension Respiratory: Reports: COPD Hematological: Reports: None Gastrointestinal: Reports: None Genitourinary: Reports: None Neuro/Psych: Reports: Anxiety Musculoskeletal: Reports: None Cancer: Reports: None - Surgical History General Surgical History: Reports: Pacemaker (defib) - Family History Family History: Reports: Unknown - Social History Smoking Status: Former smoker Hx Substance Use: No Alcohol Screening: None Physical Exam - Physical Exam Appearance: Well-appearing, No pain distress, Well-nourished Eyes: GARRET, EOMI, Conjunctiva clear ENT: Ears normal, Nose normal, Oropharynx normal Respiratory: Airway patent, Breath sounds clear, Breath sounds equal, Respirations nonlabored Cardiovascular: RRR, Pulses normal, No rub, No murmur GI/: Soft, Nontender, No masses, Bowel sounds normal, No Organomegaly Musculoskeletal: Normal strength, ROM intact, No edema, No calf tenderness Skin: Warm, Dry, Normal color Neurological: Sensation intact, Motor intact, Reflexes intact, Cranial nerves intact, Alert, Oriented Psychiatric: Affect appropriate, Mood appropriate Interpretation - Fire Chief Rhythm: Other (PACED RYTH) - EKG Interpretation Rhythm: Other (PACED RYTHM WITH INTERNSIC RYTHM BEING SINUS MEETS S GARBOSSA'A CRITERIA A FOR ACUTE RI) [place]: Left Physician Notification - Case Discussed Physician Notified: luis miguel MORGAN Time of Notification: 18:50 (TRANSFER) Physician Notified: PMD Time of Notification: 18:55 Critical Care Note - Critical Care Note Total Time (mins): 120 Course - Course Hematology/Chemistry: 03/14/18 17:39 Orders, Labs, Meds: Lab Review 03/14/18 03/14/18 17:39 17:39 WBC 12.86 H RBC 4.00 L Hgb 12.0 L Hct 33.6 L MCV 84.0 MCH 30.0 MCHC 35.7 H RDW Coeff of Dione 13.2 Plt Count 143 Immature Gran % (Auto) 0.7 Neut % (Auto) 84.8 Lymph % (Auto) 5.1 L Campbell % (Auto) 6.8 Eos % (Auto) 2.3 Baso % (Auto) 0.3 Immature Gran # (Auto) 0.1 Neut # (Auto) 10.9 H Lymph # (Auto) 0.7 Campbell # (Auto) 0.9 Eos # (Auto) 0.3 Baso # (Auto) 0.0 Lactic Acid 3.09 H Orders Category Date Time Status ABG DRAW REQUEST Stat CARDIO 03/14/18 18:13 Ordered EKG-(ED ONLY) Stat CARDIO 03/14/18 17:10 Completed ED IV/MEDIPORT/POWERPORT .ONCE EMERGENCY 03/14/18 17:10 Active ABG Stat LAB 03/14/18 18:13 Ordered AMYLASE Stat LAB 03/14/18 17:39 Received BLOOD CULTURE (ED ONLY) Stat LAB 03/14/18 17:39 Received CBC W/ AUTO DIFF Stat LAB 03/14/18 17:39 Completed COMPREHENSIVE METABOLIC PANEL Stat LAB 03/14/18 17:39 Received CREATINE KINASE Stat LAB 03/14/18 17:39 Received D-DIMER Stat LAB 03/14/18 17:39 Received LACTIC ACID Stat LAB 03/14/18 17:39 Completed LIPASE Stat LAB 03/14/18 17:39 Received NT-PROBNP Stat LAB 03/14/18 17:39 Received PARTIAL THROMBOPLASTIN TIME Stat LAB 03/14/18 17:39 Received PROCALCITONIN Stat LAB 03/14/18 17:39 Received PT WITH INR Stat LAB 03/14/18 17:39 Received TROPONIN I Stat LAB 03/14/18 17:39 Received URINALYSIS C & S IF INDICATED Stat LAB 03/14/18 17:10 Uncollected 0.9 % Sodium Chloride [Saline Flush] MEDS 03/14/18 17:10 Ordered 1 syr IVF PRN PRN Ceftriaxone Sodium [Rocephin] 2 gm MEDS 03/14/18 18:10 Active 0.9 % Sodium Chloride [Sodium Chloride] 100 ml IV ONCE Sodium Chloride 0.9% [Sodium Chloride] 250 ml MEDS 03/14/18 18:12 Active IV 250 mls/hr CT ABDOMEN/PELVIS WO CONTRAST Stat RADS 03/14/18 17:[address] CHEST W/O CONTRAST Stat RADS 03/14/18 17:11 Taken Medications Generic Name Dose Route Start Last Admin Trade Name Freq PRN Reason Stop Dose Admin Ceftriaxone Sodium 2 gm/ 100 mls @ 100 mls/hr 03/14/18 18:10 Sodium Chloride IV 03/14/18 19:09 ONCE STA Sodium Chloride 250 mls @ 250 mls/hr 03/14/18 18:12 Sodium Chloride IV 03/14/18 19:11 .Q1H STA Sodium Chloride 1 syr 03/14/18 17:10 Saline Flush IVF PRN PRN To flush IV Vital Signs: Temp Pulse Resp BP Pulse Ox 03/14/18 17:19 76 14 83/51 L 95 03/14/18 16:36 97.4 F L 86 20 86/57 L 97 Departure - Departure Time of Disposition: 18:50 Disposition: TSF SHORT-TRM HOSP Discharge Problem: Dizziness Acute renal failure Qualifiers: Acute renal failure type: unspecified Qualified Code(s): N17.9 - Acute kidney failure, unspecified Sepsis Qualifiers: Sepsis type: sepsis due to unspecified organism Qualified Code(s): A41.9 - Sepsis, unspecified organism Warfarin toxicity Qualifiers: Encounter type: initial encounter Injury intent: undetermined intent Qualified Code(s): T45.514A - Poisoning by anticoagulants, undetermined, initial encounter Instructions: Acute Kidney Injury (DC) Condition: Fair Pt referred to PMD for follow-up: Yes IPMP verified?: No Allergies/Adverse Reactions: Allergies fentanyl Adverse Reaction (Verified 03/14/18 16:46) spironolactone Adverse Reaction (Verified 03/14/18 16:46) Home Medications: Ambulatory Orders Aspirin [Aspirin Chewable] 81 mg PO DAILY 01/01/13 Lisinopril [Zestril] 2.5 mg PO DAILY 01/01/13 Warfarin Sodium [Coumadin] 6.5 mg PO QPM 01/01/13 Alprazolam 1 - 2 tab PO BID PRN 09/24/13 Budesonide/Formoterol Fumarate [Symbicort 160-4.5 Mcg Inhaler] 1 puff IH BID 01/30 Carvedilol [Coreg] 6.25 mg PO BIDWM #60 tablet 09/28/13 Albuterol Sulfate 0.083% Neb [Albuterol 0.083% Neb] 1 vial NEB RTQ6H PRN Metformin HCl [Glucophage] 500 mg PO BID 02/20/14 Ondansetron [Zofran Odt] 8 mg PO Q8H PRN 10/07/16 Sitagliptin Phosphate [Januvia] 25 mg PO DAILY 10/07/16 Atorvastatin Calcium [Lipitor] 10 mg PO BEDTIME 03/14/18 Furosemide [Lasix Tab] 80 mg PO QDAC 03/14/18 Disposition Discussed With: Patient, Family
[2018-03-14] MEDS ORDERED: ROCEPHIN ONE ×2 (18:21→18:22)
[2018-03-14] MEDS ORDERED: LOVENOX SUBCUT STA (18:27)
--- NOTE | 2018-03-14 18:33 | CT ---
EXAM: CT of the chest without contrast. HISTORY: Cough. PROCEDURE: Contiguous axial CT images of the chest without contrast with coronal and sagittal reform ats. FINDINGS: There is a multi lead automatic implantable cardiac defibrillator. The heart is enlarged. The thoracic aorta is within normal limits in diameter. There are calcified hilar lymph nodes. 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 There is minimal right ba silar atelectasis and/or pneumonia. There is minimal left basilar dependent atelectasis. There are m ultiple sternotomy wires. There are degenerative changes in the spine. The adrenal glands and liver are normal in appearance. There is sludge and/or tiny gallstones in the gallbladder. The gallbladder is within normal limits in size. Impression: Minimal right basilar atelectasis and/or pneumonia. Minimal left basilar dependent atelectasis. Cardiomegaly. Cholelithiasis and/or gallbladder sludge as described.
== END 2018-03-14 19:45 | disposition short-term general hospital (02) ==
LOC: ED 16:35
DX: R42 Dizziness and giddiness (principal); N17.9 Acute kidney failure, unspecified; A41.9 Sepsis, unspecified organism; T45.514A Poisoning by anticoagulants, undetermined, initial encounter; I95.9 Hypotension, unspecified; E11.9 Type 2 diabetes mellitus without complications; E78.5 Hyperlipidemia, unspecified; I10 Essential (primary) hypertension; I25.2 Old myocardial infarction; Z79.899 Other long term (current) drug therapy; Z95.0 Presence of cardiac pacemaker
CPT/HCPCS: 36415; 80053; 82150; 82550; 82553; 82803; 83605; 83690; 83880; 84145; 84484; 85025; 85379; 85610; 85730; 87040; 93005; 93010; 96361; 96365; 96366; 99285

== ENCOUNTER 2018-03-14 19:44 | Outpatient (CLI) ==
[2012-12-02 20:31] VITALS: TEMP 97.3
[2018-03-14 16:43] VITALS: BMI 29.1
== END 2018-03-14 19:45 | disposition home or self-care (01) ==
LOC: AMBL 19:44
PROVIDERS: ATTEND Family Medicine
DX: R53.81 Other malaise (principal); R63.4 Abnormal weight loss; J44.9 Chronic obstructive pulmonary disease, unspecified; F41.9 Anxiety disorder, unspecified; I10 Essential (primary) hypertension; E11.9 Type 2 diabetes mellitus without complications

== ENCOUNTER 2018-03-19 06:54 | Outpatient (RCR) ==
[2018-04-13 09:50] VITALS: BP 104/52
== END 2018-04-18 23:59 ==
LOC: CAR.REHAB 06:54
PROVIDERS: ATTEND Internal Medicine Interventional Cardiology
DX: I42.0 Dilated cardiomyopathy (principal); I50.22 Chronic systolic (congestive) heart failure
CPT/HCPCS: 93798

== ENCOUNTER 2018-03-26 10:30 | Outpatient (CLI) ==
[2012-12-02 20:31] VITALS: TEMP 97.3
== END 2018-03-26 10:31 | disposition home or self-care (01) ==
LOC: LAB 10:30
PROVIDERS: ATTEND Internal Medicine
DX: N18.9 Chronic kidney disease, unspecified (principal); D63.1 Anemia in chronic kidney disease; E86.0 Dehydration; Z51.81 Encounter for therapeutic drug level monitoring; Z79.01 Long term (current) use of anticoagulants
CPT/HCPCS: 36415; 80053; 85025; 85610

== ENCOUNTER 2018-03-30 10:00 | Outpatient (CLI) ==
[2012-12-02 20:31] VITALS: TEMP 97.3
== END 2018-03-30 10:01 | disposition home or self-care (01) ==
LOC: LAB 10:00
PROVIDERS: ATTEND Internal Medicine
DX: E87.6 Hypokalemia (principal)
CPT/HCPCS: 36415; 80053

== ENCOUNTER 2018-07-09 09:35 | Outpatient (CLI) ==
[2012-12-02 20:31] VITALS: TEMP 97.3
[2018-06-08 20:49] VITALS: BMI 30.8
== END 2018-07-09 09:36 | disposition home or self-care (01) ==
LOC: LAB 09:35
PROVIDERS: ATTEND Internal Medicine
DX: Z51.81 Encounter for therapeutic drug level monitoring (principal); Z79.01 Long term (current) use of anticoagulants
CPT/HCPCS: 36415; 85610

== ENCOUNTER 2018-08-17 08:07 | Outpatient (CLI) ==
[2012-12-02 20:31] VITALS: TEMP 97.3
[2018-08-17 08:49] VITALS: BMI 29.6
== END 2018-08-17 08:18 | disposition critical access hospital (66) ==
LOC: AMBL 08:07
PROVIDERS: ATTEND Internal Medicine
DX: R53.1 Weakness (principal); E11.9 Type 2 diabetes mellitus without complications; R05 Cough; I48.91 Unspecified atrial fibrillation; J44.9 Chronic obstructive pulmonary disease, unspecified; Z95.0 Presence of cardiac pacemaker

== ENCOUNTER 2018-08-17 08:25 | Emergency (ER) ==
[2018-08-17] MEDS ORDERED: SODIUM CHLORIDE 1,000 ML IV STA (08:30)
[2018-08-17 08:49] VITALS: TEMP 99.5; BMI 29.6
[2018-08-17] MEDS ORDERED: ZOSYN 4.5 GM 4.5 GM in SODIUM CHLORIDE 100 ML IV STA (09:23)
[2018-08-17] MEDS ORDERED: DOPAMINE 400 MG in PREMIX 250 ML D5W 1 BAG IV SCH (09:30)
[2018-08-17] MEDS ORDERED: LEVOPHED 4 MG in SODIUM CHLORIDE 246 ML IV SCH (09:30)
[2018-08-17] MEDS ORDERED: MEPHYTON PO STA (09:42)
--- NOTE | 2018-08-17 09:52 | DI ---
EXAM: Single view of the chest. History: Short of breath Comparison: Chest radiograph 07/18/2018 Findings: Heart is enlarged. Interval development of pulmonary edema. Small left pleural effusion. Sternotomy wires. Pacer device. No pneumothorax. Cannot exclude superimposed left perihilar pneu monia. No acute osseous abnormalities. Impression: 1. Cardiomegaly with interval development of pulmonary edema. 2. Exclude superimposed left perihilar pneumonia. 3. Small left pleural effusion
[2018-08-17 10:13] VITALS: BP 79/58
--- NOTE | 2018-08-17 10:13 | ED.PDOC ---
General ED Provider: Dr. MARIE CURIEL Chief Complaint: Weakness Stated Complaint: WEAKNESS GENERALIZED , WAS LET GO FROM A REHAB FROM [place] IN THE SAME CONDITION WHICH HE PRESENTS HIMSELF AT [facility] , INCONTINENT OF STOOL . SHORT OF AIR NO MOTOR /SENSORY ISSUE. WAS TRANSFERED FROM [facility] TO [facility] ON Jul. AT [facility] HE HAD AN M.I. AND ARRESTED Time Seen by Physician: 08:30 Information Source: Patient Exam Limitations: No limitations Primary Care Provider: JAN MACE Nursing and Triage Documentation Reviewed and Agree: No Does patient meet sepsis criteria?: No If yes, has appropriate treatment been initiated?: No System Inflammatory Response Syndrome: Not Applicable Sepsis Protocol: For patient's 13 years and over: Temp is 96.8 and below OR 101 and greater Pulse >90 BPM Resp >20/minute Acutely Altered Mental Status Are patient's symptoms suggestive of a new infection, such as: -Pneumonia -Skin, Soft Tissue -Endocarditis -UTI -Bone, Joint Infection -Implantable Device -Acute Abdominal Infection -Wound Infection -Meningitis -Blood Stream Catheter Infection -Unknown Review of Systems - Review Of Systems Constitutional: Reports: Chills, Malaise, Weakness, Loss of appetite Eyes: Reports: No symptoms Ears, Nose, Mouth, Throat: Reports: No symptoms Respiratory: Reports: Cough, Short of air Cardiac: Reports: No symptoms GI: Reports: No symptoms : Reports: No symptoms Musculoskeletal: Reports: No symptoms Skin: Reports: No symptoms Neurological: Reports: No symptoms Endocrine: Reports: No symptoms Hematologic/Lymphatic: Reports: No symptoms All Other Systems: Reviewed and Negative Past Medical History - Past Medical History Previously Healthy: No Endocrine: Reports: DM 2, Dyslipidemia Cardiovascular: Reports: OR, Hypertension Respiratory: Reports: COPD Hematological: Reports: None Gastrointestinal: Reports: None Genitourinary: Reports: None Neuro/Psych: Reports: Anxiety Musculoskeletal: Reports: None Cancer: Reports: None - Surgical History General Surgical History: Reports: Pacemaker (defib) - Family History Family History: Reports: Unknown - Social History Smoking Status: Former smoker Hx Substance Use: No Alcohol Screening: None Physical Exam - Physical Exam Appearance: Ill-appearing Ill-appearing: Severe Pain Distress: Mild Eyes: GARRET, EOMI, Conjunctiva clear ENT: Dry mucosa Respiratory: Breath sounds diminished, Rhonchi Cardiovascular: RRR, Pulses normal, No rub, No murmur GI/: Soft, Nontender, No masses, Bowel sounds normal, No Organomegaly Musculoskeletal: Normal strength, ROM intact, No edema, No calf tenderness Skin: Warm, Dry, Normal color Neurological: Sensation intact, Motor intact, Reflexes intact, Cranial nerves intact, Alert, Oriented Psychiatric: Affect appropriate, Mood appropriate Interpretation - Radiology Interpretation Radiology Interpretation By: Radiologist Radiology Results: Positive (PULMONARY EDEMA .) - EKG Interpretation ST Segment: Other (PACED RYTH AT RATE OF 70 RULES IN WITH MARGARITA.Vicki CRITERIA FOR M.I.) Physician Notification - Case Discussed Physician Notified: TAL Time of Notification: 09:30 Critical Care Note - Critical Care Note Total Time (mins): 120 Course - Course Hematology/Chemistry: 08/17/18 08:50 08/17/18 08:50 Orders, Labs, Meds: Lab Review 08/17/18 08/17/18 08/17/18 08:33 08:50 08:50 WBC 4.52 RBC 4.07 L Hgb 11.2 L Hct 34.1 L MCV 83.8 MCH 27.5 MCHC 32.8 RDW Coeff of Dione 23.3 H Plt Count 142 Neutrophils % (Manual) 85.0 H Lymphocytes % (Manual) 8.0 L Nucleated RBCs 1.0 Reactive Lymphocytes 8.0 H Poikilocytosis 3+ Anisocytosis 2+ [place] Cells Pending Acanthocytes (Spur) 2+ PT 71.6 H INR 7.60 H* APTT 55.4 H D-Dimer (Manual) Puncture Site Rbrach O2 Saturation 85.0 L ABG pH 7.440 ABG pCO2 29.5 L ABG pO2 48.0 L* ABG HCO3 20.0 L ABG Total CO2 21 L ABG Base Excess -4 L FiO2 % 21.0 Sodium Potassium Chloride Carbon Dioxide Anion Gap BUN Creatinine Estimated GFR (MDRD) BUN/Creatinine Ratio Glucose Lactic Acid Calcium Total Bilirubin AST ALT Alkaline Phosphatase Total Creatine Kinase Troponin I Total Protein Albumin Globulin Albumin/Globulin Ratio Procalcitonin TSH Stl Occult Blood (IFOB) Stool Occult Blood #2 Stool Occult Blood #3 Influ A Molecular Assay Influ B Molecular Assay 08/17/18 08/17/18 08/17/18 08:50 08:50 08:50 WBC RBC Hgb Hct MCV MCH MCHC RDW Coeff of Dione Plt Count Neutrophils % (Manual) Lymphocytes % (Manual) Nucleated RBCs Reactive Lymphocytes Poikilocytosis Anisocytosis [place] Cells Acanthocytes (Spur) PT INR APTT D-Dimer (Manual) Puncture Site O2 Saturation ABG pH ABG pCO2 ABG pO2 ABG HCO3 ABG Total CO2 ABG Base Excess FiO2 % Sodium 133.8 L Potassium 3.73 Chloride 92.2 L Carbon Dioxide 25.3 Anion Gap 20.03 BUN 72.2 H* Creatinine 4.04 H* Estimated GFR (MDRD) 15.00 BUN/Creatinine Ratio 17.87 Glucose 95.8 Lactic Acid 1.94 Calcium 7.68 L Total Bilirubin 1.99 H AST 182.4 H ALT 12.6 Alkaline Phosphatase 130.7 H Total Creatine Kinase 109.8 Troponin I 1.110 H* Total Protein 6.08 L Albumin 3.00 L Globulin 3.08 Albumin/Globulin Ratio 0.97 Procalcitonin 0.64 TSH 0.926 Stl Occult Blood (IFOB) Stool Occult Blood #2 Stool Occult Blood #3 Influ A Molecular Assay Influ B Molecular Assay 08/17/18 08/17/18 08/17/18 08:50 08:56 09:30 WBC RBC Hgb Hct MCV MCH MCHC RDW Coeff of Dione Plt Count Neutrophils % (Manual) Lymphocytes % (Manual) Nucleated RBCs Reactive Lymphocytes Poikilocytosis Anisocytosis [place] Cells Acanthocytes (Spur) PT INR APTT D-Dimer (Manual) 2113.16 Puncture Site O2 Saturation ABG pH ABG pCO2 ABG pO2 ABG HCO3 ABG Total CO2 ABG Base Excess FiO2 % Sodium Potassium Chloride Carbon Dioxide Anion Gap BUN Creatinine Estimated GFR (MDRD) BUN/Creatinine Ratio Glucose Lactic Acid Calcium Total Bilirubin AST ALT Alkaline Phosphatase Total Creatine Kinase Troponin I Total Protein Albumin Globulin Albumin/Globulin Ratio Procalcitonin TSH Stl Occult Blood (IFOB) Negative Stool Occult Blood #2 No specimen received Stool Occult Blood #3 No specimen received Influ A Molecular Assay Positive by naat H Influ B Molecular Assay Negative by naat Orders Category Date Time Status ABG DRAW REQUEST Stat CARDIO 08/17/18 08:34 Completed EKG-(ED ONLY) Stat CARDIO 08/17/18 08:29 Completed C-DIFF MONITORING (NURSING) BID CARE 08/17/18 08:37 Active ED IV/MEDIPORT/POWERPORT .ONCE EMERGENCY 08/17/18 08:29 Active ABG Stat LAB 03/01/19 08:33 Completed BLOOD CULTURE Stat LAB 08/17/18 09:10 Received CBC W/ AUTO DIFF Stat LAB 08/17/18 08:50 Results COMPREHENSIVE METABOLIC PANEL Stat LAB 08/17/18 08:50 Completed CREATINE KINASE Stat LAB 08/17/18 08:50 Completed D-DIMER Stat LAB 08/17/18 08:50 Completed FLU A/B MOLECULAR Stat LAB 08/17/18 08:56 Completed FREE T4 (FREE THYROXINE) Stat LAB 08/17/18 08:50 Received LACTIC ACID Stat LAB 08/17/18 08:50 Completed MANUAL DIFFERENTIAL Stat LAB 08/17/18 08:50 Results MOLECULAR GROUP A STREP Stat LAB 08/17/18 08:55 Completed OCCULT BLOOD, STOOL Stat LAB 08/17/18 09:30 Completed PARTIAL THROMBOPLASTIN TIME Stat LAB 08/17/18 08:50 Completed PROCALCITONIN Stat LAB 08/17/18 08:50 Completed PT WITH INR Stat LAB 08/17/18 08:50 Completed THYROID STIMULATING HORMONE Stat LAB 08/17/18 08:50 Completed TROPONIN I Stat LAB 08/17/18 08:50 Completed URINALYSIS C & S IF INDICATED Stat LAB 08/17/18 08:29 Uncollected c-diff [C. DIFFICILE] Routine LAB 08/17/18 08:37 Uncollected 0.9 % Sodium Chloride [Saline Flush] MEDS 08/17/18 08:29 Active 1 syr IVF PRN PRN 0.9 % Sodium Chloride [Sodium Chloride] 246 ml MEDS 08/17/18 09:30 Active Norepinephrine Bitartrate Inj [Levophed] 4 mg IV 8 mcg/min Phytonadione [Mephyton] MEDS 08/17/18 09:42 Discontinued 5 mg PO ONCE STA Piperacillin Sodium/Tazobactam [Zosyn 4.5 gm] 4.5 gm MEDS 08/17/18 09:23 Active 0.9 % Sodium Chloride [Sodium Chloride] 100 ml IV ONCE Sodium Chloride 0.9% [Sodium Chloride] 1,000 ml MEDS 08/17/18 08:30 Active IV 125 mls/hr CHEST, 1V AP ONLY Stat RADS 08/17/18 09:22 Completed Medications Generic Name Dose Route Start Last Admin Trade Name Freq PRN Reason Stop Dose Admin Sodium Chloride 1,000 mls @ 125 mls/hr 08/17/18 08:30 08/17/18 08:45 Sodium Chloride IV 08/17/18 16:29 1,200 mls/hr .Q8H STA Administration Piperacillin Sod/Tazobactam 100 mls @ 100 mls/hr 08/17/18 09:23 08/17/18 09: 49 Sod 4.5 gm/ Sodium Chloride IV 08/17/18 10:22 100 mls/hr ONCE STA Administration Norepinephrine Bitartrate 4 mg 250 mls @ 30 mls/hr 08/17/18 09:30 08/17/18 09 :34 / Sodium Chloride IV 8 mcg/min .Q8H20M WAYNE 30 mls/hr Administration Protocol 8 MCG/MIN Sodium Chloride 1 syr 08/17/18 08:29 Saline Flush IVF PRN PRN To flush IV Discontinued Medications Generic Name Dose Route Start Last Admin Trade Name Freq PRN Reason Stop Dose Admin Phytonadione 5 mg 08/17/18 09:42 08/17/18 09:50 Mephyton PO 08/17/18 09:43 5 mg ONCE STA Administration Vital Signs: Temp Pulse Resp BP Pulse Ox 08/17/18 09:34 92 H 20 72/51 L 08/17/18 08:26 99.5 F 88 20 68/50 L 93 L Departure - Departure Time of Disposition: 10:20 Disposition: TSF SHORT-TRM HOSP Discharge Problem: Warfarin toxicity, Influenza A Pulmonary edema Qualifiers: Chronicity: acute Qualified Code(s): J81.0 - Acute pulmonary edema Acute OR Qualifiers: Myocardial infarction type: unspecified Involved coronary artery: unspecified coronary artery Qualified Code(s): I21.9 - Acute myocardial infarction, unspecified Renal failure Qualifiers: Acute renal failure type: unspecified Acute respiratory failure Qualifiers: Respiratory failure complication: hypoxia Qualified Code(s): J96.01 - Acute respiratory failure with hypoxia Condition: Good Pt referred to PMD for follow-up: Yes IPMP verified?: No Allergies/Adverse Reactions: Allergies fentanyl Adverse Reaction (Verified 08/17/18 09:04) spironolactone Adverse Reaction (Verified 08/17/18 09:04) Home Medications: Ambulatory Orders Aspirin [Aspirin Chewable] 81 mg PO DAILY 01/01/13 Warfarin Sodium [Coumadin] 2 mg PO QPM 01/01/13 Alprazolam 1 tab PO BID PRN 09/24/13 Furosemide [Lasix Tab] 80 mg PO QDAC 03/14/18 Amiodarone HCl 200 mg PO BID 06/08/18 Budesonide/Formoterol Fumarate [Symbicort 160-4.5 Mcg Inhaler] 2 puff IH BID Carvedilol [Coreg] 12.5 mg PO BIDWM 06/08/18 Cefdinir 300 mg PO BID 06/08/18 Fluticasone Propionate [Flonase] 2 spray NS DAILY 06/08/18 Hydroxyzine HCl 10 mg PO Q6HR PRN 06/08/18 Potassium Chloride [Klor-Con 10] 10 meq PO DAILY 06/08/18 Sitagliptin Phosphate [Januvia] 100 mg PO DAILY 06/08/18 Transfer Form Completed: Yes Disposition Discussed With: Patient, Family
== END 2018-08-17 10:32 | disposition short-term general hospital (02) ==
LOC: ED 08:25
DX: J11.1 Influenza due to unidentified influenza virus with other respiratory manifestations (principal); T45.511A Poisoning by anticoagulants, accidental (unintentional), initial encounter; J81.0 Acute pulmonary edema; I21.9 Acute myocardial infarction, unspecified; J96.01 Acute respiratory failure with hypoxia; N19 Unspecified kidney failure; Z79.01 Long term (current) use of anticoagulants; Z79.899 Other long term (current) drug therapy; E11.9 Type 2 diabetes mellitus without complications; E78.5 Hyperlipidemia, unspecified; I10 Essential (primary) hypertension; J44.9 Chronic obstructive pulmonary disease, unspecified; R53.1 Weakness; Z95.0 Presence of cardiac pacemaker
CPT/HCPCS: 36415; 80053; 82272; 82550; 82803; 83605; 84145; 84439; 84443; 84484; 85007; 85025; 85379; 85610; 85730; 87040; 87502; 87651; 93005; 93010; 96361; 96365; 96367; 99285

== ENCOUNTER 2018-08-17 10:25 | Outpatient (CLI) ==
[2012-12-02 20:31] VITALS: TEMP 97.3
[2018-08-17 08:49] VITALS: BMI 29.6
== END 2018-08-17 10:45 | disposition short-term general hospital (02) ==
LOC: AMBL 10:25
PROVIDERS: ATTEND Internal Medicine
DX: J81.1 Chronic pulmonary edema (principal); R79.89 Other specified abnormal findings of blood chemistry; N19 Unspecified kidney failure; T45.515A Adverse effect of anticoagulants, initial encounter; J11.1 Influenza due to unidentified influenza virus with other respiratory manifestations; R53.1 Weakness; J96.00 Acute respiratory failure, unspecified whether with hypoxia or hypercapnia